=== PATIENT | male | born 1990 | race Caucasian/White ===

== ENCOUNTER 2017-04-14 09:15 | Emergency (ER) | payer BC ==
[~2017-04-14] VITALS: Ht 177.8 cm; Wt 96.1 kg
[2017-04-14 09:19] VITALS: TEMP 36.4; Ht 177.8 cm; Wt 96.1 kg
--- NOTE | 2017-04-14 10:17 | DIAGNOSTIC IMAGING REPORT ---
L KNEE 3 VIEWS CLINICAL HISTORY: 26 years-old Male presenting with LEFT, TWISTING INJURY. TECHNIQUE: Frontal, lateral, and sunrise views of the left knee were obtained. COMPARISON: None. FINDINGS: No acute fracture or malalignment. Small knee joint effusion may be present. Subcutaneous edema also suggested over the anterior knee. No patellar subluxation. No advanced degenerative change. IMPRESSION: Small knee joint effusion without evidence of acute osseous injury. Electronically signed by: Phil Lin M.D. 04/14/2017 10:16 AM Dictated Date/Time: 04/14/2017 10:15 AM
[2017-04-14] MEDS ORDERED: OXYC1TAB3 PO (11:17)
--- NOTE | 2017-04-14 11:17 | EMERGENCY ROOM VISIT NOTE ---
ED Visit Note First contact with patient: 09:24 CHIEF COMPLAINT: Left knee injury last evening HISTORY OF PRESENT ILLNESS: Patient is an otherwise healthy 26-year-old white male who presents to the emergency department accompanied by his for evaluation of left knee pain after an injury that occurred last evening. He was messing around with a friend, wrestling. He states that his left leg was planted, then kicked by his friend. His unsure whether he was kicked from the inside or the outside of the knee. He states that the knee twisted and popped, with immediate onset of pain. He complains of pain primarily in the lateral aspect of the knee. It is worse with any attempt at weightbearing, or range of motion. He took oxycodone and Tylenol last evening. He borrowed crutches from his brother. He feels better when the knee is partially flexed. He notes swelling in the knee. He rates his discomfort a 9/10. He reports a remote history of an LCL injury that was treated conservatively in high school. Patient does report that he woke with severe pain at 0530 this morning. He went into the bathroom to get something to take for pain, and he felt dizzy and lightheaded. He sat down on the toilet, and apparently suffered a syncopal episode. His heard him, and tended to him immediately. He was face down on the floor, and had hit the bridge of his nose, he believes on the bathroom scale. There was a small skin wound repair with bleeding coming from the laceration, but no louisa epistaxis. He was only out for a few seconds. There was no seizure-like activity, incontinence or tongue biting. Patient reports afterwards, other than pain he felt fine. He denies any headache, lightheadedness or dizziness or vision changes. Patient's states that he has been acting appropriately since. REVIEW OF SYSTEMS: Review of systems as per HPI. All other systems reviewed were negative. 10 systems reviewed. PMH: Electronic medical records are reviewed and summarized as above/below. See Problem List. SOCIAL HISTORY: Patient lives at home with his . Nonsmoker, denies alcohol use. He is employed. PHYSICAL EXAM: Vital Signs: Reviewed Nurse's notes. MENTAL STATUS: Patient is a pleasant, well-appearing 26-year-old white male who is awake and alert and in no acute distress. HEENT: Normocephalic, atraumatic. Pupils equal, round, reactive to light and accommodation. EOMs intact without nystagmus. Sclera are anicteric. Tympanic membranes intact, with normal landmarks. External canals are clear. Oral and nasopharynx are clear. Mucous membranes are moist. Superficial, non-gaping linear skin wound on the nasal bridge. No active bleeding. No septal hematoma. No nasal bony tenderness, ecchymosis or swelling. KNEE: Examination of the left knee shows mild generalized soft tissue swelling, and a moderate intra-articular joint effusion palpable. He does not have any tenderness over the patellar ligament or the quadriceps tendon. No peripatellar tenderness or crepitus. He is tender along the lateral joint line. He some fullness in the popliteal space. He can extend fully, but it is painful, he prefers to be flexed roughly 10. Passively he can be flexed to 90 before he has discomfort. Collateral ligaments are stable to varus and valgus stress at 0 and 30, although the patient has lateral knee discomfort with valgus stress. Anterior drawer without significant laxity, although ligamentous testing is difficult to assess due to the patient's confusion and guarding. The left lower extremity is neurovascularly intact. EMERGENCY DEPARTMENT COURSE: X-rays of the left knee were obtained. There is no evidence for acute fracture. Joint effusion and soft tissue swelling were noted. Patient was wrapped with a 6 inch Andrzej wrap 2. He declined a knee immobilizer. He was issued crutches and instructed on a weight bear as tolerated gait. He is established with Dr. Mejia and would like to follow-up with his office. They were contacted and will call the patient directly to set up an appointment. Patient was given a prescription for oxycodone for pain. Differential diagnoses entertained include knee sprain, meniscal tear, cruciate or collateral ligament tear, tibial plateau fracture, patellar dislocation, among others. Medication reconciliation: I attest that I have personally reviewed the patient' s current medication list. Blood pressure screening : Patient was found to have normal blood pressure on screening and does not require follow-up. Patient was reviewed in the [facility] Prescription Drug Monitoring Program, and there was no record noted. L KNEE 3 VIEWS CLINICAL HISTORY: 26 years-old Male presenting with LEFT, TWISTING INJURY. TECHNIQUE: Frontal, lateral, and sunrise views of the left knee were obtained. COMPARISON: None. FINDINGS: No acute fracture or malalignment. Small knee joint effusion may be present. Subcutaneous edema also suggested over the anterior knee. No patellar subluxation. No advanced degenerative change. IMPRESSION: Small knee joint effusion without evidence of acute osseous injury. Problem List Medical Problems: (1) Cervical strain Status: Resolved (2) Dizziness Status: Resolved (3) Laceration Status: Resolved (4) Phalanx, distal fracture of finger Status: Resolved Current/Historical Medications Scheduled PRN Oxycodone Immediate Rel Tab (Roxicodone Ir), 1-2 TAB PO Q4H PRN for Severe Pain Allergies Coded Allergies: No Known Allergies (Unverified , 04/14/17) Vital Signs Date Time Temp Pulse Resp B/P (MAP) Pulse Ox O2 Delivery O2 Flow Rate FiO2 04/14/17 11:23 79 16 143/82 94 04/14/17 09:19 36.4 96 14 135/86 97 Room Air Departure Information Impression Primary Impression: Left knee injury Prescriptions Oxycodone Immediate Rel Tab (ROXICODONE IR) 5 Mg Tab 1-2 TAB PO Q4H Y for Severe Pain, #20 TAB For Initial Treatment Prov: Samantha Woods PA 04/14/17 Referrals No Doctor, Assigned (PCP) Ronald Mejia M.D. Patient Instructions [facility] Additional Instructions Oxycodone (OxyIR) 5mg: Take 1-2 pills every four hours for breakthrough pain. Avoid alcohol, operating machinery or dangerous equipment, working on ladders or roofs, DRIVING, or situations where being under the influence may be dangerous. It is recommended to use an efru-rio-vmdnckl stool softener such as Colace, 100mg twice daily while taking this medication to avoid constipation. Ibuprofen(Motrin, Advil) may be used for fever or pain. Use 600mg every six hours as needed. Take with food. Avoid using more than 2400mg in a 24 hour period. Do not use 2400mg per day for more than three consecutive days without physician direction. Prolonged inappropriate use can lead to stomach upset or ulcers. This medication can be taken if you need to drive, work, or perform activities which may be dangerous when taking narcotic pain medication. (AND/OR) Acetaminophen(Tylenol) may be used for fever or pain. Use 1000mg every six hours as needed. Avoid using more than 3000mg in a 24 hour period. This medication can be taken if you need to drive, work, or perform activities which may be dangerous when taking narcotic pain medication. Ice compresses for 20 minutes at a time four times daily for 2-3 days. Use the crutches as instructed. Rest and elevate your injury. Continue current medications. Return to the ER immediately for any numbness, tingling, severe pain, extreme swelling in the extremity or as needed. Follow up with [facility]. Problem Qualifiers Primary Impression: Left knee injury Encounter type: initial encounter Qualified Codes: S89.92XA - Unspecified injury of left lower leg, initial encounter
[2017-04-14 11:23] VITALS: BP 143/82; PULSE 79; O2SAT 94
== END 2017-04-14 11:28 | disposition home or self-care (01) ==
LOC: C.EDB 09:17
DX: S89.92XA Unspecified injury of left lower leg, initial encounter (principal); S01.21XA Laceration without foreign body of nose, initial encounter; W50.1XXA Accidental kick by another person, initial encounter; M25.462 Effusion, left knee; W18.12XA Fall from or off toilet with subsequent striking against object, initial encounter; Y93.83 Activity, rough housing and horseplay

== ENCOUNTER → 2017-06-14 | Day surgery (SDC) | payer BC ==
[2017-06-06 13:57] VITALS: Ht 177.8 cm; Wt 95.5 kg
[~2017-06-14] VITALS: Ht 177.8 cm; Wt 95.5 kg
[~2017-06-14] MED LIST: ASPEC325 PO; ATROPINE SULFATE 0.1 MG/ML 5ML SYR IV PRN; CEFAZOLIN 2000MG IV PUSH 10 ML IV SCH; CEFAZOLIN SOD 1 GM VIAL ONE; CEFAZOLIN SOD 1000MG/5 ML IV PUSH IV ONE; DEXAMETHASONE SOD INJ 4 MG/ML VIAL ONE; EpINEphrine INJ 1MG/ML AMP 1 MG/ML AMP ONE; FENTANYL CITRATE INJ 50 MCG/1 ML 2 ML VIAL ONE; GLYCOPYRROLATE INJ 0.2 MG/ML VIAL ONE; KETO10TA PO; KETOROLAC TROMETHAMINE 30 MG/ML VIAL IV. PRN; KETOROLAC TROMETHAMINE 30 MG/ML VIAL ONE; LABETALOL HCL IV 5 MG/ML 20ML IV PRN; LACTATED RINGER'S 1000ML 1,000 ML IV SCH; LIDOCAINE HCL 2% 2 ML VIAL (20MG/ML) ONE; MIDAZOLAM HCL 1 MG/ML 2ML VIAL ONE; NEOSTIGMINE METHYLSULFATE 5 MG/5 ML SYR ONE; ONDANSETRON INJ 2 MG/ML 2 ML VIAL IV PRN; ONDANSETRON INJ 2 MG/ML 2 ML VIAL ONE; OXYC-57 PO; OXYCODONE/ACETAMINOPHEN 5-325 TAB PO PRN; PROPOFOL IV EMULSION 10 MG/ML 20 ML VIAL IV ONE; ROPIVACAINE 0.5% 5 MG/ML 30 ML VIAL ONE; SODIUM CHLORIDE 0.9% 1000ML 1,000 ML IV SCH
--- NOTE | 2017-06-14 06:49 | History & Physical Bridge - SC ---
H&P Re-Evaluation Bridge Note: I have examined the patient, reviewed the History & Physical and in the interval since the performance of the History & Physical I have noted the following changes of clinical significance: Will use Allograft tissue if hamstrings insufficient. No changes noted
--- NOTE | 2017-06-14 08:47 | [facility] Post Operative Brief Note ---
Immediate Operative Summary Operative Date Jun 14, 2017. Pre-Operative Diagnosis Left Knee ACL Rupture Post-Operative Diagnosis Left ACL Tear + DJD Procedure(s) Performed Left Knee Arthroscopic Anterior Cruciate Ligament Reconstruction Using Hamstring Autograft, Chondroplasty Medial Femoral Condyle Surgeon Dr. Mejia Ironer Hand Surgeon(s) Mehdi Albarado PA-C Estimated Blood Loss Minimal Findings ACL Tear + Medial Femoral Condyle DJD Specimens None Anesthesia General Complication(s) None Disposition Recovery Room / PACU
--- NOTE | 2017-06-14 08:55 | Discharge Instructions-SurgCtr ---
Discharge Instructions Date of Service Jun 14, 2017. Visit Reason for Visit: Left Knee Acl Rupture Discharge Discharge Diagnosis / Problem: Left ACL tear Discharge Goals Goal(s): Decrease discomfort, Improve function, Therapeutic intervention Activity Recommendations Activity Limitations: per Instructions/Follow-up section Weightbearing Status: Left weightbearing (as tolerated with brace ) Anesthesia . Post Anesthesia Instructions: If you have had General Anesthesia or IV Sedation: * Do not drive today. * Resume driving when surgeon permits. * Do not make important decisions or sign legal documents today. * Call surgeon for: 1. Temperature elevations greater than 101 degrees F. 2. Uncontrollable pain. 3. Excessive bleeding. 4. Persistent nausea and vomiting. 5. Medication intolerance (nausea, vomiting or rash). * For nausea and vomiting use only clear liquids such as: tea, soda, bouillon until nausea subsides, then gradually increase diet as tolerated. * If you have any concerns or questions, call your surgeon's office. If physician is unavailable and it is an emergency, call 911 or go to the nearest emergency room. . Instructions / Follow-Up Instructions / Follow-Up MEDICATIONS: * Resume previous medications unless instructed otherwise by your surgeon. * Always take pain medication on a full stomach or with food to avoid upset stomach. * Do not drink alcohol or drive while taking narcotics. * Ibuprofen or Tylenol may be taken if narcotic not needed. No ibuprofen while taking toradol SPECIAL CARE INSTRUCTIONS: __ None _x_ Keep extremity elevated and iced x 48 hours; apply ice 20-30 minutes 8-10 times/day. May remove at night. _x_ Crutches __ May discard when able _x_ Brace/Post-op shoe __ 24 hrs/day __ Remove at night _x_ Dressing __ Maintain until seen in office, may shower with plastic over site _x_ Remove dressings in 24-48 hours and then may shower _x_ Cover incisions with band-aids after showering x__ Do not remove steri-strips Call physician if chills or temperature rises above 102 degrees or pain unrelieved by prescribed pain medications. Office [phone] follow up in 2 weeks Diet Recommendations Home Diet: resume previous diet Procedures Procedures Performed: Left Knee Arthroscopic Anterior Cruciate Ligament Reconstruction Using Hamstring Autograft, Chondroplasty Medial Femoral Condyle Pending Studies Studies pending at discharge: no Medical Emergencies . Who to Call and When: Medical Emergencies: If at any time you feel your situation is an emergency, please call 911 immediately. . Non-Emergent Contact Non-Emergency issues call your: Surgeon . . "Provider Documentation" section prepared by Cole Albarado. .
--- NOTE | 2017-06-14 09:21 | OPERATIVE REPORT ---
DATE OF OPERATION: 06/14/2017 SURGEON: Ronald Mejia MD. LEAD DATA ARCHITECT: JEFFREY Page. PREOPERATIVE DIAGNOSES: Left anterior cruciate ligament tear. POSTOPERATIVE DIAGNOSES: 1. Left knee anterior cruciate ligament tear. 2. 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 PROCEDURE: 1. Left knee exam under anesthesia. 2. Left knee diagnostic arthroscopy. 3. Left knee arthroscopic ACL reconstruction with 7.5 mm x 9 mm hamstring autograft. 4. Left knee chondroplasty of the medial femoral condyle. COMPLICATIONS: None. ESTIMATED BLOOD LOSS: Minimal. TOURNIQUET TIME: 67 minutes at 300 mmHg. ANESTHESIA: General with adductor canal block. DRAINS: None. SPECIMENS: None. 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 He had the acute onset of pain and discomfort. He was seen in clinic and diagnosed with an ACL and MCL tear was confirmed by MRI. The patient restored his range of motion and elected to proceed with surgical treatment. OPERATIVE FINDINGS: Operative findings revealed a complete ACL tear. He did have some grade 2-3 chondrosis of the medial femoral condyle. His medial meniscus was intact. In the lateral compartment, the articular surface and meniscus was intact. The PCL was intact. The patellofemoral articulation was fairly well preserved. Upon harvesting the hamstring tendons, the hamstring tendons were fairly scarred down to the MCL. The MCL clinically appeared healed but did make hamstring harvesting a little more difficult. OPERATIVE PROCEDURE: The patient was taken to the operating room, identified and placed on operative table in supine position. All contact areas were appropriately padded. IV antibiotics were provided by the anesthesia team. General anesthetic was implemented. A left thigh tourniquet was then placed. The left knee was then examined under anesthesia with findings as described above. Left leg was then prepped and draped in the usual sterile fashion. The left leg was elevated and exsanguinated with Esmarch and tourniquet was placed at 300 mmHg. About a 4 cm incision was made directly over the hamstring tendons. Sharp dissection was carried through the subcutaneous tissues down to the level of the sartorius fascia. The subcutaneous tissues were mobilized circumferentially. An oblique incision was made in the sartorius fascia just above the hamstring tendons. The hamstring tendons were then harvested. They were fairly adherent to the surrounding tissues so I did have to dissect them off. The #2 Tycron whipstitch was placed in the end of each tendon and each tendon was then harvested with a closed ended tendon stripper. They taken to the back table and cut to 21 cm in length. The muscle was stripped off the opposite end of the tendon. The tendons were then folded over. The femoral side fit through a 7.5 mm tunnel and the tibial side through a 9. The graft was placed on the graft board and 10 pounds of tension were applied until ready for implantation. The graft was also covered. Attention was then drawn to knee arthroscopy. Routine left knee arthroscopy was then performed through typical anteromedial and anterolateral portals. A superolateral outflow portal was established for outflow. The remnant of the ACL was excised. A notchplasty was performed. A shaver was used to debride some loose cartilage at the end of the medial femoral condyle. It was not down to exposed bone. Attention was then drawn to the ACL reconstruction. With the use of a tibial guide set at 50 degrees, guidewire was placed in the area of the proposed tibial tunnel. It was overdrilled with a 9 mm solid reamer. The tunnel was cleaned of all debris. A 6 mm over the top guide was then placed in the anterior medial portal. The knee was maximally flexed. A guidewire was placed in the area of the proposed femoral tunnel. It was overdrilled with a 4.5 mm Endobutton drill bit. The tunnel length measured 40 mm in length. A 20 mm closed loop Endobutton was selected. The tunnel was then drilled with a 7.5 mm acorn drill bit to a distance of 30 mm. The tunnel was cleaned. The graft was then looped over a 20 mm closed loop Endobutton. A Beath pin was then used to pass the graft through the tibial tunnel up into the femoral tunnel and the Endobutton was flipped. The knee was brought out into full extension. I then cycled the knee several times. There was no impingement. The knee was brought out into full extension and tensioned using the Intrafix tensioner at 20 pounds of tension. The tunnel was dilated and a large Biocryl Intrafix sheath was placed followed by a 7/9 Biocryl Intrafix screw. The sheath did shred some when placing the screw. I then examined the knee. There was no translation at all of Damion and no pivot at all. I placed the scope back in the knee and the graft was appropriately tensioned in both flexion and extension. The shaver was then used to debride any additional debris throughout the knee. The scope was then removed from the knee joint. The portals were closed with 3-0 Prolene suture in a simple fashion. The knee was injected with 30 mL of 0.5% ropivacaine with epinephrine and 30 mg of Toradol. The sartorius fascia was then closed with 0 Vicryl suture in a cpidvn-[id number]-gjgup fashion. The tourniquet was then let down for a tourniquet time of 67 minutes. The wound was once again irrigated. The subcutaneous tissues were then closed with 2-0 Dexon suture in buried interrupted fashion. Skin was closed with 3-0 Prolene suture in a subcuticular fashion. The leg was then cleaned and dried and a sterile dressing of Xeroform, 4 x 4, sterile cast padding, Andrzej bandage, cold pack and knee immobilizer applied. The patient then brought out of general anesthesia and transferred to the recovery room in stable condition. The patient tolerated the procedure well with no complications. All needle and sponge counts were correct at the end of the operation. I attest to the content of the Intraoperative Record and any orders documented therein. Any exception s are noted below.
[2017-06-14] MEDS: HYDROmorphone INJ 0.5 MG/0.5 ML SYR IV PRN ×3 (09:22→09:52)
--- NOTE | 2017-06-14 10:09 | Anesthesia Progress Nt - [facility] ---
Anesthesia Post Op Note Date & Time Jun 14, 2017 at 10:09 Vital Signs Vital Signs Past 12 Hours Date Time Temp Pulse Resp B/P (MAP) Pulse Ox O2 Delivery O2 Flow Rate FiO2 06/14/17 09:55 153/95 06/14/17 09:53 74 16 95 18 09:53 75 16 06/14/17 09:50 36.8 75 16 152/94 95 Room Air 06/14/17 09:50 152/94 06/14/17 09:48 74 19 06/14/17 09:48 73 19 95 18 09:45 142/100 18 09:43 73 15 18 09:43 74 15 99 06/14/17 09:40 144/98 06/14/17 09:38 73 19 98 06/14/17 09:38 73 19 18 09:35 155/97 06/14/17 09:33 80 19 98 06/14/17 09:33 79 19 06/14/17 09:30 147/100 06/14/17 09:28 88 20 97 06/14/17 09:28 84 20 06/14/17 09:25 149/93 18 09:23 79 20 99 06/14/17 09:23 81 20 06/14/17 09:20 153/101 06/14/17 09:20 90 20 149/93 97 Diffusion Mask 6 06/14/17 09:18 76 21 96 06/14/17 09:18 76 21 06/14/17 09:15 154/103 06/14/17 09:13 96 28 91 06/14/17 09:13 91 28 06/14/17 09:10 146/94 06/14/17 09:08 84 21 18 09:08 84 21 98 06/14/17 09:05 153/90 06/14/17 09:03 97 24 06/14/17 09:03 97 24 98 06/14/17 09:00 136/86 18 08:58 89 19 18 08:58 89 19 98 18 08:55 150/91 18 08:53 94 21 06/14/17 08:53 95 21 147/88 97 06/14/17 08:53 36.5 84 20 147/88 98 Diffusion Mask 6 06/14/17 06:57 75 28 99 06/14/17 06:57 77 06/14/17 06:55 118/80 06/14/17 06:53 136/88 06/14/17 06:52 82 06/14/17 06:52 83 29 100 06/14/17 06:47 0 06/14/17 06:42 0 06/14/17 06:30 36.1 68 16 137/92 (107) 97 Room Air Notes Mental Status: alert / awake / arousable, participated in evaluation Pt Amnestic to Procedure: Yes Nausea / Vomiting: adequately controlled Pain: adequately controlled Airway Patency, RR, SpO2: stable & adequate BP & HR: stable & adequate Hydration State: stable & adequate Anesthetic Complications: no major complications apparent
[2017-06-14 11:09] VITALS: BP 131/79; PULSE 88; TEMP 36.6; O2SAT 97
== END | disposition home or self-care (01) ==
LOC: X.SURG 06:17
PROVIDERS: ATTEND Orthopaedic Surgery Sports Medicine
DX: S83.512A Sprain of anterior cruciate ligament of left knee, initial encounter (principal); X58.XXXA Exposure to other specified factors, initial encounter; Y93.72 Activity, wrestling